=== PATIENT | female | born 1970 | race Two or more races ===

== ENCOUNTER 2019-06-06 14:15 | Emergency (ER) | payer MEDICAID ==
[~2019-06-06] VITALS: Ht 157.5 cm; Wt 59.0 kg
[2019-06-06] MEDS ORDERED: KETOROLAC 30MG/ML VIAL IV STA (18:54)
[2019-06-06] MEDS ORDERED: SODIUM CHLORIDE 0.9% 1,000 ML IV ONE (18:54)
[2019-06-06] MEDS ORDERED: METOCLOPRAMIDE HCL 10MG/2ML VIAL IV ONE (19:00)
[2019-06-06] MEDS ORDERED: DIPHENHYDRAMINE 50MG/ML VIAL IV ONE (19:00)
[2019-06-06 19:26] LABS: BASOPHILS % 0.8 % (0.0-2.0); CLARITY URINE CLEAR (CLEAR); COLOR URINE YELLOW (YELLOW); EOSINOPHILS % 0.3 % (0.0-5.0); HEMATOCRIT. 42.8 % (36.0-48.0); HEMOGLOBIN. 14.3 g/dL (12.0-16.0); KETONES URINE 2+ (NEGATIVE); LEUKOCYTE ESTERASE URINE 3+ (NEGATIVE); LYMPHOCYTES % 24.6 % (20.0-50.0); MEAN CORPUSCULAR HEMOGLOBIN 29.8 pg (28.0-32.0); MEAN CORPUSCULAR VOLUME 88.9 fL (81.0-99.0); MEAN PLATELET VOLUME 10.9 fl (7.4-10.4); MONOCYTES % 10.4 % (2.0-8.0); NEUTROPHILS % 63.9 % (40.0-76.0); NITRITE URINE NEGATIVE (NEGATIVE); OCCULT BLOOD URINE 1+ (NEGATIVE); PH URINE 6.5 (4.5-8.0); PLATELET 178 x1000/uL (130-400); PROTEIN URINE NEGATIVE (NEGATIVE); RED BLOOD CELL COUNT 4.81 mill/uL (4.2-5.4); RED CELL DISTRIBUTION WIDTH 13.5 % (11.6-14.6); SPECIFIC GRAVITY URINE 1.013 (1.005-1.030); UROBILINOGEN URINE 0.2 E.U./dL (0.2-1.0)
[2019-06-06 19:30] LABS: CHLORIDE 104 mEq/L (98-107)
[2019-06-06 19:35] LABS: HCG SCREEN NEGATIVE
[2019-06-06 21:48] VITALS: BP 102/50
== END 2019-06-06 21:50 | disposition home or self-care (01) ==
LOC: ER 14:15
DX: R51 Headache (principal); N39.0 Urinary tract infection, site not specified
CPT/HCPCS: 36415; 70450; 80053; 81003; 81025; 84703; 85025; 87086; 96361; 96374; 96375; 99284; J1200; J1885; J2765; J7030; Z7610